=== PATIENT | male | born 1970 | race Hispanic/Latino ===

== ENCOUNTER 2022-03-07 13:24 | Emergency (ER) | payer SELFPAY ==
--- OUTSIDE RECORDS SUMMARY | 2022-03-07 13:27 | XMS REPORT | Continuity of Care Document ---
:1970 Author Organization [facility] t Address [address] [place] [address] Care Team Providers Name Role Phone Brenden Cid Attending Clinician Unavailable Payers Payer Name Policy Type Policy Number Effective Date Expiration Date [facility] [id number] 2019 CHOICE 00:00:00 Problems Condition Condition Condition Status Onset Resolution Last Treating Co mments Source Name Details Category Date Date Treatment Clinician Date Left lower Left lower Diagnosis Active Common quadrant quadrant [facility] pain pain - [facility] Allergies, Adverse Reactions, Alerts Allergy Allergy Status Severity Reaction(s) Onset Inactive Treating Comm ents Source Name Type Date Date Clinician NO KNOWN Drug Active [facility] ALLERGIE [facility] Medications This patient has no known medications. Procedures This patient has no known procedures. Encounters Start End Encounter Admission Attending Care Care Encounter Source Date/Time Date/Time Type Type Clinicians Facility Department ID 2021-03-29 Outpatient DANI Cid [facility] [id number] Common 11:09:52 Brenden [id number] [facility] 2019-05-06 2019-05-06 Outpatient [facility] [id number] Univers 09:30:00 09:30:00 [id number] [facility] 2019-05-06 2019-05-06 Outpatient [facility] [id number] Univers 00:00:00 00:00:00 [facility] 2019-04-28 2019-04-28 [facility]patient [id number] Common 08:30:00 08:30:00 t Specialty/U [facility]idy Specialty rology - [facility] Results This patient has no known results.
--- NOTE | 2022-03-07 15:14 | RAD REPORT ---
EXAM DESCRIPTION: RAD - Hand Right 3 View - 03/07/2022 2:10 pm CLINICAL HISTORY: Right hand pain status post injury FINDINGS: No fracture or dislocation is seen. A radiopaque foreign body not seen
--- NOTE | 2022-03-07 15:40 | ER ---
Nurse's Notes [facility] Name: Zion Thapa Age: 52 yrs Sex: Male : 1970 Arrival Date: 03/07/2022 Time: 13:54 Bed 10 Private MD: Diagnosis: Puncture wound with foreign body of right hand Presentation: 03/07 13:59 Chief complaint: Patient states: he got a splinter in his right hand when working on a ap3 cabinet. Coronavirus screen: At this time, the client does not indicate any symptoms associated with coronavirus-19. Ebola Screen: No symptoms or risks identified at this time. Initial Sepsis Screen: Does the patient meet any 2 criteria? No. Patient's initial sepsis screen is negative. Does the patient have a suspected source of infection? No. Patient's initial sepsis screen is negative. Risk Assessment: Do you want to hurt yourself or someone else? Patient reports no desire to harm self or others. Onset of symptoms was March 07, 2022. 13:59 Method Of Arrival: Ambulatory ap3 13:59 Acuity: COLIN 4 ap3 Triage Assessment: 14:01 General: Appears uncomfortable, Behavior is calm, cooperative, appropriate for age. ap3 Pain: Complains of pain in left hand. Neuro: Level of Consciousness is awake, alert, obeys commands, Oriented to person, place, time, situation. Derm: Wound noted left hand. Historical: - Allergies: 14:01 No Known Allergies; ap3 - Home Meds: 14:01 None [Active]; ap3 - PMHx: 14:01 None; ap3 - Immunization history:: Client reports having NOT received the Covid vaccine. Last tetanus immunization: unknown, Flu vaccine is not up to date. - Social history:: Smoking status: Patient denies any tobacco usage or history of. Screenin:02 Abuse screen: Denies threats or abuse. Nutritional screening: No deficits noted. ap3 Tuberculosis screening: No symptoms or risk factors identified. 14:02 [facility] ED Fall Risk Assessment (Adult) History of falling in the last 3 months, ap3 including since admission No falls in past 3 months (0 pts). Assessment: 14:55 General: Appears in no apparent distress. comfortable, Behavior is calm, cooperative, ld1 appropriate for age. Pain: Complains of pain in palm of left hand Pain does not radiate. Pain currently is 7 out of 10 on a pain scale. Quality of pain is described as throbbing. Neuro: Level of Consciousness is awake, alert, obeys commands, Oriented to person, place, time, situation. Cardiovascular: Capillary refill < 3 seconds Patient's skin is warm and dry. Respiratory: Airway is patent Respiratory effort is even, unlabored. GI: No signs and/or symptoms were reported involving the gastrointestinal system. : No signs and/or symptoms were reported regarding the genitourinary system. EENT: No signs and/or symptoms were reported regarding the EENT system. Derm: Wound noted palm of left hand. Musculoskeletal: No signs and/or symptoms reported regarding the musculoskeletal system. Vital Signs: 13:59 Pulse 53; Resp 19; Temp 98.4; Pulse Ox 100% ; Weight 83.91 kg; Height 5 ft. 10 in. ap3 (177.80 cm); Pain 2/10; 14:02 BP 131 / 84; ap3 14:55 BP 129 / 88; Pulse 61; Resp 19; Pulse Ox 100% on R/A; ld1 16:17 BP 131 / 84; Pulse 60; Resp 18; Temp 98.1(TE); Pulse Ox 100% on R/A; ld1 13:59 Body Mass Index 26.54 (83.91 kg, 177.80 cm) ap3 ED Course: 13:54 Patient arrived in ED. mr 13:57 Sherrell GlezALLY is [facility]. kb 13:57 Nestor Correa MD is Attending Physician. kb 14:01 Triage completed. ap3 14:02 Arm band placed on left wrist. ap3 14:02 Patient has correct armband on for positive identification. Adult w/ patient. ap3 14:06 Cheyenne Marshall, TOSIN is Primary Nurse. ld1 14:11 Hand Right 3 View XRAY In Process Unspecified. EDMS 14:55 special effects artist on. Pulse ox on. NIBP on. Door closed. Noise minimized. Warm blanket ld1 given. 16:18 No provider procedures requiring assistance completed. Patient did not have IV access ld1 during this emergency room visit. 18:32 Sebastian Gonzalez MD is Referral Physician. kb Administered Medications: No medications were administered Medication: 14:55 VIS not applicable for this client. ld1 Outcome: 15:40 Discharge ordered by MD. sumner 16:18 Discharged to home ambulatory, with family. ld1 16:18 Condition: stable 16:18 Discharge instructions given to patient, family, Instructed on discharge instructions, follow up and referral plans. Demonstrated understanding of instructions, follow-up care. 16:18 Patient left the ED. ld1 18:38 Patient left the ED. ap3 Signatures: Dispatcher [employer] EDMS Sherrell Glez, STREETCAR MOTORMAN-C STREETCAR MOTORMAN-Song Dimple Al[place]te mr Alice Tomas, RN RN ap3 Cheyenne Marshall, RN RN ld1 Corrections: (The following items were deleted from the chart) 16:18 16:17 BP 131 / 84; Pulse 60bpm; Resp 18bpm; Pulse Ox 100% RA; ld1 ld1
--- NOTE | 2022-03-07 15:40 | EDPHYS ---
Physician Documentation [facility] Name: Zion Thapa Age: 52 yrs Sex: Male : 1970 Arrival Date: 03/07/2022 Time: 13:54 Bed 10 Private MD: ED Physician Nestor Correa HPI: 03/07 16:20 This 52 yrs old Male presents to ER via Ambulatory with complaints of Foreign kb body in hand. 16:20 The patient or guardian reports the patient has a suspected foreign body, of the palm kb of right hand. Treatment Prior to Arrival: tried to remove, but couldn't get out. The patient has not experienced similar symptoms in the past. The patient has not recently seen a physician. 16:20 The reported likely foreign body is sliver of wood. Onset: The symptoms/episode kb began/occurred just prior to arrival. Current symptoms: foreign body sensation, pain. Historical: - Allergies: 14:01 No Known Allergies; ap3 - Home Meds: 14:01 None [Active]; ap3 - PMHx: 14:01 None; ap3 - Immunization history:: Client reports having NOT received the Covid vaccine. Last tetanus immunization: unknown, Flu vaccine is not up to date. - Social history:: Smoking status: Patient denies any tobacco usage or history of. ROS: 16:19 Constitutional: Negative for fever, chills, and weight loss. kb 16:19 Skin: Positive for puncture, of the palm of right hand, fb. 16:19 All other systems are negative. Exam: 16:19 Constitutional: This is a well developed, well nourished patient who is awake, alert, kb and in no acute distress. Head/Face: Normocephalic, atraumatic. ENT: Moist Mucous membranes Respiratory: Respirations even and unlabored. No increased work of breathing. Talking in full sentences MS/ Extremity: Pulses equal, no cyanosis. Neurovascular intact. Full, normal range of motion. Neuro: Awake and alert, GCS 15, oriented to person, place, time, and situation. Moves all extremities. Normal gait. Psych: Awake, alert, with orientation to person, place and time. Behavior, mood, and affect are within normal limits. 16:19 Skin: injury, puncture(s), that are superficial, of the palm of right hand. Vital Signs: 13:59 Pulse 53; Resp 19; Temp 98.4; Pulse Ox 100% ; Weight 83.91 kg; Height 5 ft. 10 in. ap3 (177.80 cm); Pain 2/10; 14:02 BP 131 / 84; ap3 14:55 BP 129 / 88; Pulse 61; Resp 19; Pulse Ox 100% on R/A; ld1 16:17 BP 131 / 84; Pulse 60; Resp 18; Temp 98.1(TE); Pulse Ox 100% on R/A; ld1 13:59 Body Mass Index 26.54 (83.91 kg, 177.80 cm) ap3 MDM: 13:57 Patient medically screened. kb 16:16 Data reviewed: vital signs, nurses notes. Data interpreted: Pulse oximetry: on room air kb is 100 %. Interpretation: normal. Counseling: I had a detailed discussion with the patient and/or guardian regarding: the historical points, exam findings, and any diagnostic results supporting the discharge/admit diagnosis, radiology results, the need for outpatient follow up, a family practitioner, to return to the emergency department if symptoms worsen or persist or if there are any questions or concerns that arise at home. 16:17 ED course: Independent interpretation of the following tests in the emergency kb department: x-ray reveals no FB; I considered the following discharge prescriptions or medication management in the emergency department: prescription for antiinflammatories discussed, but pt said he has ibuprofen at home that he will take. Tetanus shot discussed with pt, but he declines vaccine at this time; History obtained from: pt and . 23:45 ED course: After I discussed diagnostics and discharge with pt he started moving his kb hand and fingers more and said he was sure there was a foreign body in his hand because he could feel it. I called Dr Gonzalez for consult with no answer. I injected 3ml of lidocaine around puncture site, made a 1.5cm incision to explore area. approx 4.5cm sliver of wood removed from palm of hand. Pt reports resolution of FB sensation. . 03/07 14:00 Order name: Hand Right 3 View XRAY; Complete Time: 15:16 kb Administered Medications: No medications were administered Disposition Summary: 03/07/22 15:40 Discharge Ordered Location: Home kb Condition: Stable kb Diagnosis - Puncture wound with foreign body of right hand kb Followup: kb - With: Emergency Department - When: As needed - Reason: Worsening of condition Followup: kb - With: Private Physician - When: 2 - 3 days - Reason: Recheck today's complaints, Continuance of care, Re-evaluation by your physician Followup: kb - With: Sebastian Gonzalez MD - When: 1 - 2 days - Reason: Recheck today's complaints Discharge Instructions: - Discharge Summary Sheet kb - Puncture Wound, [id number] kb - Skin Foreign Body kb Forms: - Medication Reconciliation Form kb - Thank You Letter kb - Antibiotic Education kb - Prescription Opioid Use kb Prescriptions: - Cephalexin 500 mg Oral Capsule - take 1 capsule by ORAL route every 8 hours for 10 days; 30 capsule; Refills: 0, kb Product Selection Permitted Signatures: Dispatcher [employer] EDMS Sherrell Glez, PROGRAMMING INTERN-C PROGRAMMING INTERN-Alice Cabrera RN RN ap3 Corrections: (The following items were deleted from the chart) 16:21 16:19 Skin: Positive for puncture, of the palm of left hand, fb, kb kb 16:21 16:19 Skin: injury, puncture(s), that are superficial, of the palm of left hand, kb kb 16:21 16:20 The patient or guardian reports the patient has a suspected foreign body, of the kb palm of left hand, kb 18:31 15:40 Puncture wound without foreign body of right hand, initial encounter kb kb
[2022-03-07 16:30] VITALS: O2SAT 100
[2022-03-07 16:33] VITALS: BP 131/84; TEMP 98.1
[2022-03-07] MEDS ORDERED: LIDOCAINE 1% MPF 5 ML VIAL ONE (17:27)
== END 2022-03-07 18:38 | disposition home or self-care (01) ==
LOC: ER 13:24
DX: S61.441A Puncture wound with foreign body of right hand, initial encounter (principal)
CPT/HCPCS: 99284; J2001